=== PATIENT | male | born 1990 | race Caucasian/White ===

== ENCOUNTER 2018-02-09 18:01 | Emergency (ER) | payer OTHER ==
[~2018-02-09] VITALS: Ht 175.3 cm; Wt 86.2 kg
== END 2018-02-09 20:06 | disposition home or self-care (01) ==
LOC: ED 18:01
DX: S63.501A Unspecified sprain of right wrist, initial encounter (principal); W01.0XXA Fall on same level from slipping, tripping and stumbling without subsequent striking against object, initial encounter; Z87.891 Personal history of nicotine dependence
CPT/HCPCS: 73110; 73130; 99283

== ENCOUNTER 2019-01-25 09:45 | Emergency (ER) | payer BC ==
[~2019-01-25] VITALS: Ht 175.3 cm; Wt 86.2 kg
[2019-01-25] MEDS ORDERED: LEVETIRACETAM500 MG PO (10:35)
--- NOTE | 2019-01-26 09:17 | EKG ---
[facility] [address] [facility] [place], [place] [address] Signed Normal sinus rhythm with sinus arrhythmia Normal ECG Confirmed by MABLE JUAREZ MD ([id number]) on 01/26/2019 9:17:11 AM Electronically Signed By: MABLE JUAREZ MD 01/26/19 0917 PATIENT NAME: TRAVIS ESPINOZA Electrocardiogram DATE OF : 88 PHYSICIAN: MABLE JUAREZ MD REPORT #: [id number] REPORT IS CONFIDENTIAL AND NOT TO BE RELEASED WITHOUT AUTHORIZATION
== END 2019-01-25 15:54 | disposition home or self-care (01) ==
LOC: ED 09:45
DX: R07.9 Chest pain, unspecified (principal); F10.10 Alcohol abuse, uncomplicated; Z87.891 Personal history of nicotine dependence
CPT/HCPCS: 71045; 80053; 83735; 84484; 85025; 93005; 93010; 96361; 96365; 96375; 99285-25; J1885; J2405; J3475; J7030

== ENCOUNTER 2019-01-27 21:50 | Emergency (ER) | payer BC ==
[~2019-01-27] VITALS: Ht 175.3 cm; Wt 79.8 kg
[~2019-01-27 21:50] MED LIST: LEVETIRACETAM500 MG PO
--- OUTSIDE RECORDS SUMMARY | 2019-01-27 21:52 | XMS ---
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 Khris has no Care Guidelines for this patient. Antonio VISIT COUNT (12 MO.) [address] [facility] TOTAL 3 NOTE: Visits indicate total known visits. ED/C VISIT TRACKING (12 MO.) 01/27/2019 21:50 [facility] [place] TYPE: Emergency COMPLAINT: - MED CONCERN 01/25/2019 09:46 [place] [place] TYPE: Emergency COMPLAINT: - CHEST PAIN 02/09/2018 18:03 [place] [place] TYPE: Emergency COMPLAINT: - RIGHT WRIST INJURY DIAGNOSES: - Personal history of nicotine dependence - Unspecified sprain of right wrist, initial encounter - Fall on same level from slipping, tripping and stumbling without subsequent striking against object, initial encounter - Pain in right wrist INPATIENT VISIT TRACKING (12 MO.) No inpatient visits to display in this time frame [email or web address]
[2019-01-28] MEDS ORDERED: NALTREXONE HCL50 MG PO (00:19)
== END 2019-01-28 02:21 | disposition home or self-care (01) ==
LOC: ED 21:50
DX: S09.90XA Unspecified injury of head, initial encounter (principal); F17.200 Nicotine dependence, unspecified, uncomplicated; Z79.899 Other long term (current) drug therapy; W22.8XXA Striking against or struck by other objects, initial encounter
CPT/HCPCS: 70450; 99285-25

== ENCOUNTER 2019-10-01 22:27 | Emergency (ER) | payer OTHER ==
[~2019-10-01] VITALS: Ht 175.3 cm; Wt 79.8 kg
--- OUTSIDE RECORDS SUMMARY | ~2019-10-01 | XMS | Encounter Summary ---
Demographics + + + | Address | [address] | | | [place] [address] | + + + | Home Phone | | + + + | Preferred Language | Unknown | + + + | Marital Status | Single | + + + | Quaker Affiliation | Unknown | + + + | Race | Unknown | + + + | Ethnic Group | Unknown | + + + Author + + + | Author | [facility] | | | and [place] | + + + | Organization | [facility] | | | and [place] | + + + | Address | Unknown | + + + | Phone | Unavailable | + + + Support + + +---------+ + | Name | Relationship | Address | Phone | + + +---------+ + | Juju Chancelas | ECON | Unknown | | + + +---------+ + Care Team Providers + +------+ + | Care Dater Assembler Name | Role | Phone | + +------+ + | No, Physician | PCP | Unavailable | + +------+ + Encounter Details +--------+ + + + + | Date | Type | Department | Care Team | Description | +--------+ + + + + | 07/07/ | Hospital | [facility] | Carlos Enrique Moody MD | Alcohol related | | 2020 | Encounter | HOSPITAL RES[facility] | [address] | seizure (HCC); | | | | THERAPY [address] | [place], [place] | Cerebral concussion, | | | | [address] [place], [place] | [id number] | with loss of | | | | [address] | | consciousness of 30 | | | | [phone] | | minutes or less, | | | | | | sequela (HCC) | +--------+ + + + + Social History + + + +--------+ + | Tobacco Use | Types | Packs/Day | Years | Date | | | | | Used | | + + + +--------+ + | Current Every Day | Cigarettes | 0.5 | | Started: 2003 | | Smoker | | | | | + + + +--------+ + + +---+---+---+ | Smokeless Tobacco: | | | | | Current User | | | | + +---+---+---+ + + +---------+ + | Alcohol Use | Drinks/Week | oz/Week | Comments | + + +---------+ + | Not Currently | | | Quit on 04/27/19 in | | | | | rehab | + + +---------+ + + + + | Sex Assigned at | Date Recorded | | | | + + + | Not on file | | + + + + + + + | Job Start Date | Occupation | Industry | + + + + | Not on file | Not on file | Not on file | + + + + + + + + | Travel History | Travel Start | Travel End | + + + + + + | No recent travel history available. | + + documented as of this encounter Medications at Time of Discharge + + + +---------+ + + | Medication | Sig | Dispensed | Refills | Start | End Date | | | | | | Date | | + + + +---------+ + + | levETIRAcetam | Take 500 mg by mouth | | 0 | 01/23/20 | | | (KEPPRA) 500 mg | 2 times daily. | | | 19 | | | tablet | | | | | | + + + +---------+ + + | naltrexone (REVIA) | Take 50 mg by mouth | | 0 | 01/23/20 | | | 50 mg tablet | Daily. | | | 19 | | + + + +---------+ + + documented as of this encounter Progress Notes Nestor Boss RRT - 07/07/2019 8:00 AM PST Setup Ambulatory EEG with video. Explain use of equipment to the patient. Lance will return EEG equipment tomorrow and staff will downl oad study. documented in this encounter Plan of Treatment Not on filedocumented as of this encounter Procedures + +--------+ + + + | Procedure Name | Priori | Date/Time | Associated Diagnosis | Comments | | | ty | | | | + +--------+ + + + | *TERMED* PA EEG | Routin | 07/07/2019 | Alcohol related | Results for this | | MONITORING/VIDEORECO | e | 8:00 AM | seizure (HCC) | procedure are in the | | RD | | PST | Cerebral concussion, | results section. | | | | | with loss of | | | | | | consciousness of 30 | | | | | | minutes or less, | | | | | | sequela (HCC) | | + +--------+ + + + documented in this encounter Results EEG 24 HR AMBULATORY MONITORING (07/07/2019 8:00 AM PST) + + + | Narrative | Performed At | + + + | Johanna Al MD 07/08/2019 12:37 PM Name:Lance Jack | | | Rosa :1990 DATE OF SERVICE: 07/07/2019 | | | 24 HOUR ELECTROENCEPHALOGRAM INTRODUCTION: This a digital | | | ambulatory video EEG recording of a 29 y.o. year-old male with | | | seizures. This study was performed to further ascertain the nature | | | of the patient's spells. This study utilized 20 channels of EEG | | | derived from 21 scalp electrodes placed over the frontal, temporal, | | | parietal, occipital, and central regions. The International 10 | | | | | | 20 system of electrode placement was used. The recording was | | | started at 8:51 AM on 07/07/2019 and ended at 11:24 AM on 07/08/19 | | | for a total record duration of approximately 27.5 hours. More than | | | 80% of the study included recorded video. RESULTS: The study was | | | reviewed using the Tolerx EEG digital system. During the | | | awake portions of the recording, a normal background pattern | | | consisting of 10 Hz was noted. The patient was asleep between | | | 12:37 PM and 3:04 PM, between 10:43 PM and 11:58 PM, and between | | | 12:07 AM and 6:07 AM. ABNORMAL POTENTIALS: No focal slow waves | | | or epileptiform discharges were seen. PUSH BUTTON/VOICE ENTRY | | | EVENTS: There were none IMPRESSION: Normal video ambulatory EEG | | | study. There was no electrographic evidence of a seizure disorder | | | during the 27.5 hour duration of this recording. Thank you for | | | the opportunity to participate in the care of this patient. | | | Johanna Al MD07/08/201912:35 PM Electronically signed | | | | | + + + documented in this encounter Visit Diagnoses + + | Diagnosis | + + | Alcohol related seizure (HCC) Other convulsions | + + | Cerebral concussion, with loss of consciousness of 30 minutes or less, sequela (HCC) | + + documented in this encounter"
--- OUTSIDE RECORDS SUMMARY | ~2019-10-01 | XMS | Encounter Summary ---
Demographics + + + | Address | [address] | | | [place] [address] | + + + | Home Phone | | + + + | Preferred Language | Unknown | + + + | Marital Status | Single | + + + | Voodoo Affiliation | Unknown | + + + | Race | Unknown | + + + | Ethnic Group | Unknown | + + + Author + + + | Author | [facility] | | | and [place] | + + + | Organization | [facility] | | | and [...] Team Providers + +------+ + | Care Geriatric Physician Name | Role | Phone | + +------+ + PCP | Unavailable | + +------+ + Reason for Visit + + + | Reason | Comments | + + + | Lab Results | | + + + Encounter Details +--------+ + + + + | Date | Type | Department | Care Team | Description | +--------+ + + + + | 06/10/ | Telephone | [facility] | Danni Alicia RN | Lab Results | | 2019 | | HOSPITAL NEUROLOGY | | | | | | CLINIC [address] | | | | | | [address] [place], | | | | | | [place] [address] | | | | | | [phone] | | | +--------+ + + + + Social [...] + + documented as of this encounter Plan of Treatment Not on filedocumented as of this encounter Visit Diagnoses Not on filedocumented in this encounter"
--- OUTSIDE RECORDS SUMMARY | ~2019-10-01 | XMS | Encounter Summary ---
Demographics + + + | Address | [address] | | | [place] [address] | + + + | Home Phone | | + + + | Preferred Language | Unknown | + + + | Marital Status | Single | + + + | Moravian Affiliation | Unknown | + + + | Race | Unknown | + + + | Ethnic Group | Unknown | + + + Author + + + | Author | [facility] | | | and [place] | + + + | Organization | [facility] | | | and [place] | + + + | Address | Unknown | + + + | Phone | Unavailable | + + + Support + + +---------+ + | Name | Relationship | Address | Phone | + + +---------+ + | Juju Edward | ECON | Unknown | | + + +---------+ + Care Team Providers + +------+ + | Care Soft Work Cigar Machine Operator Name | Role | Phone | + +------+ + | No, Physician | PCP | Unavailable | + +------+ + Reason for Visit + + + | Reason | Comments | + + + | Results, Imaging | | + + + Encounter Details +--------+ + + + + | Date | Type | Department | Care Team | Description | +--------+ + + + + | 07/01/ | Telephone | [facility] | Carlos Enrique Moody MD | Results, Imaging | | 2020 | | HOSPITAL NEUROLOGY | [address] | | | | | CLINIC [address] | [place], [place] | | | | | [address], | [address] | | | | | [place] [address] | | | | | | [phone] | | | +--------+ + + + [...]
--- OUTSIDE RECORDS SUMMARY | ~2019-10-01 | XMS | Encounter Summary ---
Demographics + + + | Address | [address] | | | [place] [address] | + + + | Home Phone | | + + + | Preferred Language | Unknown | + + + | Marital Status | Single | + + + | Spiritism Affiliation | Unknown | + + + | Race | Unknown | + + + | Ethnic Group | Unknown | + + + Author + + + | Author | [facility] | | | and [place] | + + + | Organization | [facility] | | | and [...] Team Providers + +------+ + | Care Instructor Private Name | Role | Phone | + [...] [address] | | | | | [place] [address] | | | | | | [phone] | | | +--------+ + + + [...]
--- OUTSIDE RECORDS SUMMARY | ~2019-10-01 | XMS | Encounter Summary ---
Demographics + + + | Address | [address] | | | [place] [address] | + + + | Home Phone | | + + + | Preferred Language | Unknown | + + + | Marital Status | Single | + + + | Quaker Affiliation | Unknown | + + + | Race | Unknown | + + + | Ethnic Group | Unknown | + + + Author + + + | Author | [facility] | | | and [place] | + + + | Organization | [facility] | | | [...] Team Providers + +------+ + | Care Automotive Technician Instructor Name | Role | Phone | + +------+ + | No, Physician | PCP | Unavailable | + +------+ + Reason for Referral Diagnostic/Screening (Routine) +--------+--------+ + + + + | Status | Reason | Specialty | Diagnoses / | Referred By | Referred To | | | | | Procedures | Contact | Contact | +--------+--------+ + + + + | Closed | | Radiology | Diagnoses | Mikaela, | Cc Wgr Mri | | | | | Alcohol | Johanna Steinberg, | [address] | | | | | related | MD [address] | | | | | seizure | [address] | [place] | | | | | (HCC) | [address], [address] [place] | [address] | | | | | Cerebral | [place], | Phone: | | | | | concussion, | [place] [address] | [phone] | | | | | with loss of | Phone: | Fax: | | | | | | [phone] | [phone] | | | | | consciousnes | Fax: | | | | | | s of 30 | [phone] | | | | | | minutes or | | | | | | | less, | | | | | | | sequela | | | | | | | (HCC) | | | | | | | Procedures | | | | | | | MRI Brain w | | | | | | | wo Contrast | | | +--------+--------+ + + + + Reason for Visit Diagnostic/Screening (Routine) +--------+--------+ + + + + | Status | Reason | Specialty | Diagnoses / | Referred By | Referred To | | | | | Procedures | Contact | Contact | +--------+--------+ + + + + | Closed | | Radiology | Diagnoses | Mikaela, | Cc Wgr Mri | | | | | Alcohol | Johanna Steinberg, | [address] | | | | | related | MD [address] | [address] | | | | | seizure | [address] | [place], [place] | | | | | ([facility]) | [address] | [address] | | | | | Cerebral | [place], | Phone: | | | | | concussion, | [place] [address] | [phone] | | | | | with loss of | Phone: | Fax: | | | | | | [phone] | [phone] | | | | | consciousnes | Fax: | | | | | | s of 30 | [phone] | | | | | | minutes or | | | | | | | less, | | | | | | | sequela | | | | | | | ([facility]) | | | | | | | Procedures | | | | | | | MRI Brain w | | | | | | | wo Contrast | | | +--------+--------+ + + + + Encounter Details +--------+ + + + + | Date | Type | Department | Care Team | Description | +--------+ + + + + | 06/30/ | Hospital | [facility] | Johanna Al | Alcohol related | | 2020 | Encounter | Hospital MRI [address] | [address] | seizure (HCC); | | | | [address] | [address] [place] | Cerebral concussion, | | | | [place], [place] | [place] [address] | with loss of | | | | [address] | [phone] | consciousness of 30 | | | | [phone] | | minutes or less, | | [...] | + +--------+ + + + | MRI BRAIN W WO | Routin | 06/30/2019 | Alcohol related | Results for this | | CONTRAST | e | 10:03 AM | seizure (HCC) | procedure are in the | | | | PST | Cerebral concussion, | results section. | | | | | with loss of | | | | | | consciousness of 30 | | | | | | minutes or less, | | | | | | sequela (HCC) | | + +--------+ + + + documented in this encounter Results MRI Brain w wo Contrast (06/30/2019 10:03 AM PST) + + | Specimen | + + | | + + + + + | Impressions | Performed At | + + + | 1. No acute finding. 2. Nonspecific small enhancing right | [facility] | | paracentral francisco javier lesion. Differential includes cavernous | | | malformation. Recommend approximate 3-6 month follow-up MR to | | | re-evaluate the lesion. 3. Mild prominence of the lateral ventricles | | | which may be within normal limits. Dictated by: Thomas Klein | | | | | + + + + + + | Narrative | Performed At | + + + | EXAMINATION: MRI BRAIN W WO CONTRAST HISTORY: Seizure, | [facility] | | nontraumatic (Age 18-40y) COMPARISON STUDY: None TECHNIQUE: | | | Multiplanar multi sequence MRI of the brain is performed without and | | | with contrast. Gadovist was injected intravenously without post | | | contrast reaction. FINDINGS: Diffusion-weighted images show no | | | evidence of restricted diffusion. The rowland-white matter interface is | | | intact. No acute intracranial hemorrhage, mass lesion, or midline | | | shift. No abnormal enhancement. Basilar cisterns are patent. | | | Ventricles are symmetric with mild prominence of the lateral | | | ventricles. Sulci are age appropriate. Major flow voids are present. | | | No focal white matter lesion. Paranasal sinuses and mastoid air | | | cells are clear . No focal pituitary abnormality is identified. | | | Corpus callosum is unremarkable. Brainstem is demonstrates a subtle | | | focus of hyperenhancement at the dorsal right paramedian francisco javier. On | | | gradient images subtle blooming is present associated with this | | | finding. Dimension approximately 2 mm seen on series 17 image 22 of | | | the postcontrast axial T1 sequence. No enhancing masses are | | | identified at the cerebellopontine angle or within the internal | | | auditory canals bilaterally. Visualized seventh and eighth nerves are | | | unremarkable. The cochlea and semicircular canals are unremarkable. | | + + + + + | Procedure Note | + + | Dilan, Rad Results In 06/30/2019 6:26 PM PST EXAMINATION:MRI BRAIN W WO | | CONTRASTHISTORY:Seizure, nontraumatic (Age 18-40y)COMPARISON | | STUDY:NoneTECHNIQUE:Multiplanar multi sequence MRI of the brain is performed without and | | with contrast. Gadovist was injected intravenously without post contrast | | reaction.FINDINGS:Diffusion-weighted images show no evidence of restricted diffusion.The | | rowland-white matter interface is intact.No acute intracranial hemorrhage, mass lesion, or | | midline shift.No abnormal enhancement.Basilar cisterns are patent.Ventricles are | | symmetric with mild prominence of the lateral ventricles.Sulci are age appropriate.Major | | flow voids are present.No focal white matter lesion.Paranasal sinuses and mastoid air | | cells are clear .No focal pituitary abnormality is identified.Corpus callosum is | | unremarkable.Brainstem is demonstrates a subtle focus of hyperenhancement at the dorsal | | right paramedian francisco javier. On gradient images subtle blooming is present associated with | | this finding. Dimension approximately 2 mm seen on series 17 image 22 of the | | postcontrast axial T1 sequence.No enhancing masses are identified at the | | cerebellopontine angle or within the internal auditory canals bilaterally. Visualized | | seventh and eighth nerves are unremarkable. The cochlea and semicircular canals are | | unremarkable.IMPRESSION: 1. No acute finding.2. Nonspecific small enhancing right | | paracentral francisco javier lesion. Differential includes cavernous malformation. Recommend | | approximate 3-6 month follow-up MR to re-evaluate the lesion.3. Mild prominence of the | | lateral ventricles which may be within normal limits.Dictated by: Thomas | | Ernie | |No focal white matter lesion. | |Paranasal sinuses and mastoid air cells are clear . | |No focal pituitary abnormality is identified. | |Corpus callosum is unremarkable. | |Brainstem is demonstrates a subtle focus of hyperenhancement at the dorsal right paramedian francisco javier. On gradient images subtle blooming is present associated with this finding. Dimensi on approximately 2 mm seen on series 17 image 22 of the postcontrast | |axial T1 sequence. | | | |No enhancing masses are identified at the cerebellopontine angle or within the internal aud itory canals bilaterally. Visualized seventh and eighth nerves are unremarkable. The cochlea and semicircular canals are unremarkable. | | | |IMPRESSION: | |1. No acute finding. | |2. Nonspecific small enhancing right paracentral francisco javier lesion. Differential includes cavern ous malformation. Recommend approximate 3-6 month follow-up MR to re-evaluate the lesion. | |3. Mild prominence of the lateral ventricles which may be within normal limits. | | | |Dictated by: Thomas Klein | | | | | + + + +---------+ + + | Performing | Address | City/State/Zipcode | Phone Number | | Organization | | | | + +---------+ + + | [facility] | | | | + +---------+ + + documented in this encounter Visit Diagnoses + + | Diagnosis | + + | Alcohol related seizure (HCC) Other convulsions | + + | Cerebral concussion, with loss of consciousness of 30 minutes or less, sequela (HCC) | + + documented in this encounter Administered Medications + +--------+ +-------+------+------+ | Medication Order | MAR | Action | Dose | Rate | Site | | | Action | Date | | | | + +--------+ +-------+------+------+ | gadobutrol (GADAVIST) injection | Given | 06/30/19 | 9 mLs | | | | 9 mL 9 mL, Intravenous, ONCE | | 20 10:04 | | | | | PRN, Other, Starting 06/30/19 | | AM PST | | | | | at 1004, For 1 dose, MRI | | | | | | + +--------+ +-------+------+------+ +---+---+ | | | +---+---+ documented in this encounter"
--- OUTSIDE RECORDS SUMMARY | ~2019-10-01 | XMS | Encounter Summary ---
Demographics + + + | Address | [address] | | | [place] [address] | + + + | Home Phone | | + + + | Preferred Language | Unknown | + + + | Marital Status | Single | + + + | Synagogue Affiliation | Unknown | + + + | Race | Unknown | + + + | Ethnic Group | Unknown | + + + Author + + + | Author | [facility] | | | and [place] | + + + | Organization | [facility] | | | and [...] Team Providers + +------+ + | Care Social Media Campaign Manager Name | Role | Phone | + +------+ + PCP | Unavailable | + +------+ + Reason for Visit +--------+ + | Reason | Comments | +--------+ + | Other | | +--------+ + Encounter Details +--------+ + + + + | Date | Type | Department | Care Team | Description | +--------+ + + + + | 06/04/ | Telephone | [facility] | Zachary Aline | Other | | 2019 | | HOSPITAL NEUROLOGY | MD [address] | | | | | CLINIC [address] | [address] [place] | | | | | [address] [place], | [place] [address] | | | | | [place] [address] | [phone] | | | | | [phone] | | | +--------+ + + + [...]
--- OUTSIDE RECORDS SUMMARY | ~2019-10-01 | XMS | Encounter Summary ---
Demographics + + + | Address | [address] | | | [place] [address] | + + + | Home Phone | | + + + | Preferred Language | Unknown | + + + | Marital Status | Single | + + + | Congregational Affiliation | Unknown | + + + | Race | Unknown | + + + | Ethnic Group | Unknown | + + + Author + + + | Author | [facility] | | | and [place] | + + + | Organization | [facility] | | | [...] Team Providers + +------+ + | Care Direct Support Professional Home Health Name | Role | Phone | + [...] [place] | | | | | ([facility]) | [place] | [address] | | | | | Cerebral | [place], | Phone: | | | | | concussion, | [place] [address] | [phone] | | | | | with loss of | Phone: | Fax: | | | | | | [phone] | [phone] | | | | | consciousnes | Fax: | | | | | | s of 30 | [phone] | | | | | | minutes [...] + + + + Reason for Visit + + + | Reason | Comments | + + + | Establish Care | Seizures | + + + Evaluate & Treat (Routine) +--------+--------+ + + + + | Status | Reason | Specialty | Diagnoses / | Referred By | Referred To | | | | | Procedures | Contact | Contact | +--------+--------+ + + + + | Closed | | Neurology | Diagnoses | Amari, | Mikaela, | | | | | Unspecified | Radha Kitchen, | Johanna Steinberg, | | | | | convulsions | PA-C [address] | MD [address] | | | | | (HCC) | [address] | [address], | | | | | | [place], [place] | [place] | | | | | | [address] | [place], [place] | | | | | | Phone: | [phone] Phone: | | | | | | [phone] | [phone] | | | | | | Fax: | Fax: | | | | | | [phone] | [phone] | +--------+--------+ + + + + Encounter Details +--------+---------+ + + + | Date | Type | Department | Care Team | Description | +--------+---------+ + + + | 06/04/ | Office | [facility] | Johanna Al | Alcohol related | | 2020 | Visit | HOSPITAL NEUROLOGY | MD [address] | seizure ([facility]); | | | | CLINIC [address] | [place] | Cerebral concussion, | | | | DR JESUS MAK [place], | [place] [address] | with loss of | | | | [place] [address] | [phone] | consciousness of 30 | | | | [phone] | | minutes or less, | | | | | | sequela (HCC) | +--------+---------+ + + + Social History + + [...] + + documented as of this encounter Last Filed Vital Signs + + + + + | Vital Sign | Reading | Time Taken | Comments | + + + + + | Blood Pressure | 129/84 | 06/04/2019 4:30 PM | | | | | PST | | + + + + + | Pulse | 80 | 06/04/2019 4:30 PM | | | | | PST | | + + + + + | Temperature | - | - | | + + + + + | Respiratory Rate | 18 | 06/04/2019 4:30 PM | | | | | PST | | + + + + + | Oxygen Saturation | 96% | 06/04/2019 4:30 PM | | | | | PST | | + + + + + | Inhaled Oxygen | - | - | | | Concentration | | | | + + + + + | Weight | 89.4 kg (197 lb 1.6 | 06/04/2019 4:30 PM | | | | oz) | PST | | + + + + + | Height | 177.8 cm (5' 10") | 06/04/2019 4:30 PM | | | | | PST | | + + + + + | Body Mass Index | 28.28 | 06/04/2019 4:30 PM | | | | | PST | | + + + + + documented in this encounter Patient Instructions Patient Instructions Johanna Al MD - 06/04/2019 4:30 PM PSTYou have the followin g tests/procedures ordered. At [facility] Radiology : Brain MRI with and without contrast EEG 24 hour Blood work at [facility]: Keppra level *Any questions, please call Dr. Al's office at Patient advised of their right to have diagnostic testing, health care treatment, and/or se rvices at a facility other than [facility], [facility]. Recurrent Seizure (Adult) You have had another seizure today. A common cause of seizures that keep happening (recurre nt seizures) is missing doses of seizure medicine. But sometimes seizures are hard to contro l even when you take the medicine correctly. If this is the case for you, your healthcare pr ovider may need to increase your dosage. Or you may need to add or change to another medicin e. Home care Follow these tips when caring for yourself at home. For this seizure: Seizures aren t predictable. So avoid doing anything that might cause danger to you or other people if you have another seizure. Until the seizures are under good control, take t hese precautions: ? Don t drive, ride a motorcycle, or ride a bike. ? Don t operate dangerous equipment such as power tools ? Take showers instead of baths. ? Don t swim or climb ladders, trees, or roofs. Tell your close friends and relatives about your seizure. Teach them what to do for you if it happens again. If medicine was prescribed to prevent seizures, take it exactly as directed. It does not work when taken "as needed." Missing doses will increase the risk of having another seizure . If you miss a dose, take the missed dose as soon as you remember. If it is almost time f or your next dose, skip the missed dose. Restart the medicine at your next scheduled time. D on t take extra medicine to make up the missed dose. Wear a "Medic-Alert" bracelet to let emergency personnel know about your condition. Follow a regular sleep schedule such that you get at least 6 to 8 hours of restful sleep every night. This is especially important when you are sick with a cold or flu and/or anoth er type of infection. For future seizures, if you are alone: If you feel a seizure coming on, lie down on a bed or on the floor with something soft unde r your head. Lie on your left side, not on your back. This will keep you from falling. It wi ll also let fluid drain out of your mouth and prevent choking. Be sure you are clear of any objects that might injure you during the seizure. Call for help if there is time. For future seizures, if someone is with you: The person should help you get into a safe position and call for help. The person shouldn t try to force anything in your mouth once the seizure begins. This could harm your teeth o r jaw. Follow-up care Follow up with your healthcare provider. Keep a seizure calendar to record how often you taylor ve a seizure. If you are being started on anti-seizure medicine, make sure that you use monica tional control. Seizure medicine can affect how well control pills work, and you could become . Avoid alcohol until your doctor tells you it s OK. Note: For the safety of yourself and others on the road, certain states require that the tr eating doctor tell the Public Health Department about any adult who is treated for a seizure and is at risk of more seizures. In this case, the Department of Motor Vehicles will be myrna d. A restriction will be put on your cdl b driver s license until a doctor gives you medical ligia arance to drive again. Contact your treating doctor to find out if your state requires the r eporting of patients with a seizures condition. When to seek medical advice Call your healthcare provider right awayif any of these occur: Seizures happen more often or last longer than usual A seizure lasts over 5 minutes You don t wake up between seizures Confusion that lasts more than 30 minutes after a seizure Injury during a seizure Fever over 100.4F (38.0C), or as advised Unusual irritability, drowsiness, or confusion Stiff or painful neck Headache that gets worse Date Last Reviewed: 12/12/201519994647-5019 [employer]. [address] [place] [address]. All righ ts reserved. This information is not intended as a substitute for professional medical care. Always follow your healthcare professional's instructions. documented in this encounter Progress Notes Gerson Garcia - 06/04/2019 4:30 PM PSTFaxed chart notes from ext consult to refe rring provider Johanna Sepulveda MD - 06/04/2019 4:30 PM PST . Patient: Lance Lee Medical Record: [id number] Date of Services: 06/04/2019 Referring Doctor: No primary care provider on file. Chief Complaint Patient presents with Establish Care Seizures HISTORY OF PRESENT ILLNESS: The patient is a 29-year-old male who is referred to me because of a known history of seizu res. His history is significant for alcohol abuse for the past 9 years. He underwent detox rece ntly and entered inpatient rehab on May 13. His first seizure occurred fibers ago while he was fishing in [place]. It was generali zed in nature. He does not remember what happened. He thinks he was brought to a hospital. I do not have records of that admission. 3 years later, he had a seizure at work. At that time, he was in [place] and was brought t o [facility]. I was able to review the records. Head CT done was negative. He had an E EG but I could not find the results. He told me that it revealed a cardiac arrhythmia altho ugh the notes from his PCP status that it was negative. He had a head CT on 01/28/2019. Thi s was negative as well. At that time, he was placed on Keppra. He stopped drinking and stopped the medication as w ell after a month. Unfortunately, he relapsed and started drinking again. He has had several seizures in the last few months. His last generalized seizure was on . He had a couple of confusional episodes on 05/19/2019. He has been sober for 30 da ys. 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 He also has a history of such as abuse, particularly opiates and psychedelic's and has been clean for 6 months. He has a cousin with seizures. He does not drive at the moment as he reported himself to the V and does not have a licen se. REVIEW OF SYSTEMS: General: Positive for weight changes HEENT: Positive for vision changes and tinnitus Cardiovascular: Positive for palpitations Respiratory: Positive for shortness of breath Gastrointestinal: Positive for jaundice Musculoskeletal: No joint pains Skin: No rash Hematologic: No bruising Neurologic: Positive for memory loss Psychiatric: No depression Genitourinary: Positive for nocturia History reviewed. No pertinent past medical history. Past Surgical History: Procedure Laterality Date facial reconstruction surgery KNEE SURGERY left foot surgery Current Outpatient Medications Medication Sig Dispense Refill levETIRAcetam (KEPPRA) 500 mg tablet Take 500 mg by mouth 2 times daily. naltrexone (REVIA) 50 mg tablet Take 50 mg by mouth Daily. No current facility-administered medications for this visit. No Known Allergies Social History Socioeconomic History Marital status: Single Spouse name: Not on file Number of children: Not on file Years of education: Not on file Highest education level: Not on file Occupational History Not on file Social Needs Financial resource strain: Not on file Food insecurity: Worry: Not on file Inability: Not on file Transportation needs: Medical: Not on file Non-medical: Not on file Tobacco Use Smoking status: Current Every Day Smoker Packs/day: 0.50 Types: Cigarettes Start date: 2003 Smokeless tobacco: Current User Substance and Sexual Activity Alcohol use: Not Currently Comment: Quit on 04/27/19 in rehab Drug use: Not Currently Comment: Drug free X 6 months Sexual activity: Not on file Lifestyle Physical activity: Days per week: Not on file Minutes per session: Not on file Stress: Not on file Relationships Social connections: Talks on phone: Not on file Gets together: Not on file Attends orthodoxy service: Not on file Active member of club or organization: Not on file Attends meetings of clubs or organizations: Not on file Relationship status: Not on file Intimate partner violence: Fear of current or ex partner: Not on file Emotionally abused: Not on file Physically abused: Not on file Forced sexual activity: Not on file Other Topics Concern Not on file Social History Narrative Not on file History reviewed. No pertinent family history. PHYSICAL EXAMINATION: BP 129/84 | Pulse 80 | Resp 18 | Ht 1.778 m (5' 10") | Wt 89.4 kg (197 lb 1.6 oz) | Sp O2 96% | BMI 28.28 kg/m General appearance: Well kept, well nourished, in no acute distress Neck is supple. Lungs are clear. Heart sounds are within normal limits. Abdomen is soft and non-tender, There is no extremity cyanosis or edema. NEUROLOGIC EXAMINATION: MENTAL STATUS: The patient is awake, alert, and oriented to time, place, and person. Spee is fluent. Memory, attention, comprehension, and general fund of knowledge are intact. CRANIAL NERVES: Funduscopy revealed distinct disc margins. There are no exudates or hemor rhages noted. Pupils are 3-4 mm, equal and reactive to light and accommodation. Extraocular muscle movements are intact. There are no visual field cuts. There is no nystagmus. There is no facial asymmetry. Facial sensation is intact. Palate elevates symmetrically. Streng th in the trapezius and sternocleidomastoid muscles is normal. Tongue is midline on protrusi on. MOTOR EXAMINATION: Strength is 5/5 throughout. Tone is normal. SENSORY EXAMINATION: Intact to light touch and pinprick. DEEP TENDON REFLEXES: 2+ and symmetric. PLANTAR RESPONSES: Downgoing bilaterally GAIT: Gait and station are normal. CEREBELLAR EXAMINATION: There is no dysmetria on aklrmc-un-juss test. IMPRESSION: 1. Alcohol related seizure (HCC) - MRI Brain w wo Contrast; Future - Levetiracetam Level; Future - EEG 24 HR AMBULATORY MONITORING; Future 2. Cerebral concussion, with loss of consciousness of 30 minutes or less, sequela (HCC) - MRI Brain w wo Contrast; Future - EEG 24 HR AMBULATORY MONITORING; Future PLAN AND RECOMMENDATIONS: I reviewed the patient's medical records prior to his visit and went over them with him. He has had only head CTs in the past and I would like him to have a brain MRI with and with out contrast to have a better neuroimaging study. This is to rule out any lesion that may p redispose him to having seizures. I'm also ordering a 24 EEG. I believe that his seizures were all secondary to alcohol withdrawal and they will likely r emit us long as he remains sober. In the meantime however, he will remain on Keppra. I ordered a level. As mentioned above, he does not have a license and he understands that he is unable to driv e until he is seizure free for 90 days. His last seizure was 05/19/2019. We will continue to follow him for his him back in 2 months to see Anita WALKER. More than 50% of this 45 minute visit was spent on jxhx-bu-pdzh with the patient, artin g him on the relationship between alcohol and seizures and reviewing his plan of care. Thank you for the opportunity to participate in the care of this patient. Johanna Al MD 06/04/2019 5:02 PM Electronically signed This note was transcribed using voice recognition software. There may be speech recognitio n errors which escaped detection during review. documented in thi s encounter Plan of Treatment Not on filedocumented as of this encounter Results EEG 24 HR AMBULATORY [...] was | | | reviewed using the Formarum EEG digital system. During the | | [...] of this patient. | | | Johanna Al, 07/08/201912:35 PM Electronically signed | | | | | + + + MRI Brain w wo Contrast (06/30/2019 10:03 [...] + + | Dilan, Rad Results In - 06/30/2019 6:26 PM PST EXAMINATION:MRI BRAIN W [...] | | | + +---------+ + + Levetiracetam Level (06/04/2019 5:15 PM PST) + + + + + + | Component | Value | Ref Range | Performed | Pathologist | | | | | At | Signature | + + + + + + | LEVETIRACET | 4.3 (L)Comment: Toxic | 12.0 - 46.0 | REFERENCE | | | AM | level is not well | mcg/mL | [facility] | | | | established. | | [facility] | | | | Interpretation should | | - [place] | | | | include a clinical | | [place] | | | | evaluation. For | | | | | | additional information, | | | | | | please refer to | | | | | | [email or web address] CenterDi | | | | | | [email or web address] [email or web address]/QZB664 | | | | | | (This link is being | | | | | | provided for | | | | | | informational/educationa | | | | | | l purposes only.) This | | | | | | test was developed and | | | | | | its analytical | | | | | | performance | | | | | | characteristics have | | | | | | been determined by [facility] | | | | | | [facility] | | | | | | [place]s | | | | | | [place]. It has not | | | | | | been cleared or approved | | | | | | by the USFood and Drug | | | | | | Administration. This | | | | | | assay has been validated | | | | | | pursuant to the CLIA | | | | | | regulations and is used | | | | | | for clinical purposes. | | | | | | @ Test Performed By: | | | | | | [facility] | | | | | | Sil Marcano | | | | | | Alecia Langford M.D., | | | | | | Ph.D., Laboratory | | | | | | Director [id number] | | | | | | [facility] | | | | | | [place] [address] | | | | | | CLIA #[id number] | | | | + + + + + + + + | Specimen | + + | Blood | + + + + + + + | Performing | Address | City/State/Zipcode | Phone Number | | Organization | | | | + + + + + | REFERENCE LAB | [id number] [facility] | [place], [place] | | | [facility] - | | [address] | | | [place] | | | | + + + + + documented in this encounter Visit Diagnoses + + | Diagnosis | + + | Alcohol related seizure (HCC) Other convulsions | + + | Cerebral concussion, with loss of consciousness of 30 minutes or less, sequela (HCC) | + + documented in this encounter
--- OUTSIDE RECORDS SUMMARY | ~2019-10-01 | XMS | Encounter Summary ---
Demographics + + + | Address | [address] | | | [place] [address] | + + + | Home Phone | | + + + | Preferred Language | Unknown | + + + | Marital Status | Single | + + + | Amish Affiliation | Unknown | + + + | Race | Unknown | + + + | Ethnic Group | Unknown | + + + Author + + + | Author | [facility] | | | and [place] | + + + | Organization | [facility] | | [...] Team Providers + +------+ + | Care Evaporator Supervisor Name | Role | Phone | + [...] | DR [address]ES[address], | [place] [address] | | | | | [place] [address] | [phone] | | | | | [phone] | | | +--------+ + + + [...]
--- OUTSIDE RECORDS SUMMARY | ~2019-10-01 | XMS | Encounter Summary ---
Demographics + + + | Address | [address] | | | [place] [address] | + + + | Home Phone | | + + + | Preferred Language | Unknown | + + + | Marital Status | Single | + + + | Lutheran Affiliation | Unknown | + + + | Race | Unknown | + + + | Ethnic Group | Unknown | + + + Author + + + | Author | [facility] | | | and [place] | + + + | Organization | [facility] | | | and [...] Team Providers + +------+ + | Care Human Resources Talent Manager Name | Role | Phone | + +------+ + | No, Physician | PCP | Unavailable | + +------+ + Reason for Visit +---------+ + | Reason | Comments | +---------+ + | Results | EEG | +---------+ + Encounter Details +--------+ + + + + | Date | Type | Department | Care Team | Description | +--------+ + + + + | 07/08/ | Telephone | [facility] | Danni Alicia RN | Results (EEG) | | 2019 | | [facility] | | | | | | CLINIC [address] | | | | | | DR [address] [place], | | | | | | [place] [address] | | | | | | [phone] | | | +--------+ + + + [...]
--- OUTSIDE RECORDS SUMMARY | ~2019-10-01 | XMS | Encounter Summary ---
Demographics + + + | Address | [address] | | | [place] [address] | + + + | Home Phone | | + + + | Preferred Language | Unknown | + + + | Marital Status | Single | + + + | Mormonism Affiliation | Unknown | + + + | Race | Unknown | + + + | Ethnic Group | Unknown | + + + Author + + + | Author | [facility] | | | and [place] | + + + | Organization | [facility] | | | [...] Team Providers + +------+ + | Care Program Coordinator Name | Role | Phone | + [...] [place] | | | | | ([facility]) | [place] | [address] | | | | | Cerebral | [place], | Phone: | | | | | concussion, | [place] [address] | [phone] | | | | | with loss of | Phone: | Fax: | | | | | | [phone] | [phone] | | | | | consciousnes | Fax: | | | | | | s of 30 | [phone] | | | | | | minutes [...] | (HCC) | [address] | [address], | | | | | | [place], [place] | [place] | | | | | | [address] | [place], [place] | | | | | | Phone: | [phone] Phone: | | | | | | [phone] | [phone] | | | | | | Fax: | Fax: | | | | | | [phone] | [phone] | +--------+--------+ + + + + Encounter Details +--------+---------+ + + + | Date | Type | Department | Care Team | Description | +--------+---------+ + + + | 06/04/ | Office | [facility] | Johanna Al | Alcohol related | | 2020 | Visit | HOSPITAL [facility]Y | MD [address] | seizure ([facility]); | | | | CLINIC [address] | [place] | Cerebral concussion, | | | | DR [address]ESUS MAK [place], | [place] [address] | with loss of | | | | [place] [address] | [phone] | consciousness of 30 | | | | [phone] | | minutes or less, | | [...] contrast EEG 24 hour Blood work at [facility]: Keppra level *Any questions, please call Dr. Al's office at Patient advised of their right to have diagnostic testing, health care treatment, and/or se rvices at a facility other than [facility], [facility]. 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 [address] [place] [address]. All righ ts reserved. This information is not intended as a substitute for professional medical care. Always follow your healthcare professional's instructions. documented in this encounter Progress Notes Gerson Garcia - 06/04/2019 4:30 PM PSTFaxed chart notes from ext consult to refe rring provider Johanna Sepulveda MD - 06/04/2019 4:30 PM PST . Patient: Lance Lee Medical Record: [id number] Date of Services: 06/04/2019 Referring Doctor: No [...] fibers ago while he was fishing in [place]. It was generali zed in nature. He does not remember what happened. He thinks he was brought to a hospital. I do not have records of that admission. 3 years later, he had a seizure at work. At that time, he was in [place] and was brought t o [facility]. I was able to review [...] file Gets together: Not on file Attends nondenominational service: Not on file Active member of [...] CEREBELLAR EXAMINATION: There is no dysmetria on fynixe-zk-hxyl test. IMPRESSION: 1. Alcohol related seizure (HCC) [...] this 45 minute visit was spent on wbcj-kk-nmun with the patient, artin g him on [...] was | | | reviewed using the [employer] EEG digital system. During the | | [...] to | | | | | | [email or web address] | | | | | | 9sky.[email or web address] | | | | | | (This [...] | | | | | | Director [id number] | | | | | | [facility] | | | | | | [place] [address] | | | | | | CLIA #[id number] | | | | + + + + + + + + | Specimen | + + | Blood | + + + + + + + | Performing | Address | City/State/Zipcode | Phone Number | | Organization | | | | + + + + + | REFERENCE LAB | [id number] [facility] | [place], [place] | | | [facility] - | | [address] | | | [place] | | [...]
--- OUTSIDE RECORDS SUMMARY | ~2019-10-01 | XMS | Clinical Summary ---
Demographics + + + | Address | [address] | | | [place] [address] | + + + | Home Phone | | + + + | Preferred Language | Unknown | + + + | Marital Status | Single | + + + | Gnosticism Affiliation | Unknown | + + + | Race | Unknown | + + + | Ethnic Group | Unknown | + + + Author + + + | Author | [facility] | | | and [place] | + + + | Organization | [facility] | | [...] Team Providers + +------+ + | Care Oil Heaterman Name | Role | Phone | + +------+ + | No, Physician | PCP | Unavailable | + +------+ + Allergies No Known Allergies Medications + + + +---------+------+------+-------+ | Medication | Sig | Dispensed | Refills | Star | End | Statu | | | | | | t | Date | s | | | | | | Date | | | + + + +---------+------+------+-------+ | levETIRAcetam | Take 500 mg by mouth | | 0 | 09/1 | | Activ | | (KEPPRA) 500 mg | 2 times daily. | | | 220 | | e | | tablet | | | | 19 | | | + + + +---------+------+------+-------+ | naltrexone (REVIA) | Take 50 mg by mouth | | 0 | 01/11 | | Activ | | 50 mg tablet | Daily. 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 | + + + | Cerebral concussion | 06/04/2019 | + + + Encounters +--------+ + + + + | Date | Type | Specialty | Care Team | Description | +--------+ + + + + | 07/08/ | Telephone | Neurology | Danni Alicia RN | Results (EEG) | | 2019 | | | | | +--------+ + + + + | 07/07/ | Hospital | Respiratory Therapy | Carlos Enrique Moody MD | Alcohol related | | 2019 | Encounter | | | seizure (HCC); | | | | | | Cerebral concussion, | | | | | | with loss of | | | | | | consciousness of 30 | | | | | | minutes or less, | | | | | | sequela (HCC) | +--------+ + + + + | 07/03/ | Telephone | Neurology | Johanna Al | Results, Imaging | | 2019 | | | MD Idris | | +--------+ + + + + from Last 3 Months Family History + +------+--------+ + | Relation | Name | Status | Comments | + +------+--------+ + | Father | | Alive | | + +------+--------+ + | Mother | | Alive | | + +------+--------+ + Social History + + + +--------+ + | Tobacco Use | Types | Packs/Day | Years | Date | | | | | Used | | + + + +--------+ + | Current Every Day | Cigarettes | 0.5 | | Started: 2004 | | Smoker | | | | [...] recent travel history available. | + + Last Filed Vital Signs + + + [...] | | + + + + + Plan of Treatment + + + + + | Health Maintenance | Due Date | Last Done | Comments | + + + + + | Vaccine: | | | | | Pneumococcal 19-64 | 5 | | | | (1 of 1 - PPSV23) | | | | + + + + + | Vaccine: | | 05/14/2008, 07/10/2000, | | | Dtap/Tdap/Td (6 - | 9 | 01/02/1995, Additional history | | | Td) | | exists | | + + + + + | Vaccine: Influenza | | 03/03/2014 | | | (Season Ended) | 0 | | | + + + + + Procedures + +--------+ + + + | Procedure Name | Priori | Date/Time | Associated Diagnosis | Comments | | | ty | | | | + +--------+ + + + | *TERMED* [place] EEG | Routin | 07/07/2019 | Alcohol [...] | | + +--------+ + + + from Last 3 Months Results EEG 24 HR AMBULATORY MONITORING (07/07/2019 [...] was | | | reviewed using the [employer] EEG digital system. During the | | [...] | | | | + + + from Last 3 Months Insurance + +--------+ +--------+ +---------+--------+ | Payer | Benefi | Subscriber | Effect | Phone | Address | Type | | | t Plan | ID | rupert | | | | | | / | | Dates | | | | | | Group | | | | | | + +--------+ +--------+ +---------+--------+ | [place] | MEDICA | [id number] | | [phone] | | Med[place] | | | [place] | | 020-Pr | 2 | | id | | | PLUS | | esent | | | | + +--------+ +--------+ +---------+--------+ + +--------+ +--------+ + + | Guarantor Name | Accoun | Relation to | Date | Phone | Billing Address | | | t Type | Patient | of | | | | | | | | | | + +--------+ +--------+ + + | Lance Lee | Person | Self [birth year] | [address] | | | al/Fam | | 1990 | [phone] | [place] | | | [place] | | | [address] (Home) | [address] | + +--------+ +--------+ + + Advance Directives + + + + + | Type | Date Recorded | Patient | Explanation | | | | Property Field Adjuster | | + + + + + | Power of | | | | | Fishing Hand | | | | + + + + + | Advance | 07/07/2019 9:25 | | | | Directive | AM | | | + + + + +
--- OUTSIDE RECORDS SUMMARY | ~2019-10-01 | XMS | Encounter Summary ---
Demographics + + + | Address | [address] | | | [place] [address] | + + + | Home Phone | | + + + | Preferred Language | Unknown | + + + | Marital Status | Single | + + + | Sikh Affiliation | Unknown | + + + | Race | Unknown | + + + | Ethnic Group | Unknown | + + + Author + + + | Author | [facility] | | | and [place] | + + + | Organization | [facility] | | | [...] Team Providers + +------+ + | Care Workers Compensation Attorney Name | Role | Phone | + [...] | | | | | | [place] [address] | | | | | | [phone] | | | +--------+ + + + [...]
--- OUTSIDE RECORDS SUMMARY | ~2019-10-01 | XMS | Encounter Summary ---
Demographics + + + | Address | [address] | | | [place] [address] | + + + | Home Phone | | + + + | Preferred Language | Unknown | + + + | Marital Status | Single | + + + | Yarsani Affiliation | Unknown | + + + | Race | Unknown | + + + | Ethnic Group | Unknown | + + + Author + + + | Author | [facility] | | | and [place] | + + + | Organization | [facility] | | | [...] Team Providers + +------+ + | Care Residential Program Manager Name | Role | Phone | [...] | | | [address] [place], [place] | [phone] | with loss of | | | | [address] | | consciousness of 30 | | | | [phone] | | minutes or less, | | [...] + +--------+ + + + | *TERMED* [place] EEG | Routin | 07/07/2019 | Alcohol [...] was | | | reviewed using the [employer] EEG digital system. During the | | [...]
--- OUTSIDE RECORDS SUMMARY | ~2019-10-01 | XMS | Encounter Summary ---
Demographics + + + | Address | [address] | | | [place] [address] | + + + | Home Phone | | + + + | Preferred Language | Unknown | + + + | Marital Status | Single | + + + | Yazdanism Affiliation | Unknown | + + + [...] Team Providers + +------+ + | Care Electronics Maintenance Technician Name | Role | Phone | + [...] | (HCC) | [address], [address] | [address] | | | | | Cerebral | [place], | Phone: | | | | | concussion, | [place] [address] | [phone] | | | | | with loss of | Phone: | Fax: | | | | | | [phone] | [phone] | | | | | consciousnes | Fax: | | | | | | s of 30 | [phone] | | | | | | minutes [...] [place], [place] | | | | | ([facility]) | [address], [address] | [address] | | | | | Cerebral | [place], | Phone: | | | | | concussion, | [place] [address] | [phone] | | | | | with loss of | Phone: | Fax: | | | | | | [phone] | [phone] | | | | | consciousnes | Fax: | | | | | | s of 30 | [phone] | | | | | | minutes or | | | | | | | less, | | | | | | | sequela | | | | | | | ([facility]) | | | | | | | [...] | | [place], [place] | [place] [address] | with loss of | | | | [address] | [phone] | consciousness of 30 | | | | [phone] | | minutes or less, | | [...]
--- OUTSIDE RECORDS SUMMARY | ~2019-10-01 | XMS | Encounter Summary ---
Demographics + + + | Address | [address] | | | [place] [address] | + + + | Home Phone | | + + + | Preferred Language | Unknown | + + + | Marital Status | Single | + + + | Baptism Affiliation | Unknown | + + + | Race | Unknown | + + + | Ethnic Group | Unknown | + + + Author + + + | Author | [facility] | | | and [place] | + + + | Organization | [facility] | | | [...] Team Providers + +------+ + | Care Puddler Pile Driving Name | Role | Phone | + [...] Results (EEG) | | 2019 | | [facility] | | | | | | CLINIC [address] | | | | | | [address] [place], | | | | | | [place] [address] | | | | | | [phone] | | | +--------+ + + + [...]
--- OUTSIDE RECORDS SUMMARY | ~2019-10-01 | XMS | Encounter Summary ---
Demographics + + + | Address | [address] | | | [place] [address] | + + + | Home Phone | | + + + | Preferred Language | Unknown | + + + | Marital Status | Single | + + + | Sabianist Affiliation | Unknown | + + + | Race | Unknown | + + + | Ethnic Group | Unknown | + + + Author + + + | Author | [facility] | | | and [place] | + + + | Organization | [facility] | | | [...] Team Providers + +------+ + | Care Pantograph Machine Set Up Operator Name | Role | Phone | [...] + + | 07/03/ | Telephone | [place] [facility] | Johanna Al | Results, Imaging | | 2020 | | HOSPITAL [facility] | MD Idris [address] | | | | | CLIN[address] | [address] | | | | | [address] [place], | [place] [address] | | | | | [place] [address] | [phone] | | | | | [phone] | | | +--------+ + + + [...]
--- OUTSIDE RECORDS SUMMARY | ~2019-10-01 | XMS | Clinical Summary ---
Demographics + + + | Address | [address] | | | [place] [address] | + + + | Home Phone | | + + + | Preferred Language | Unknown | + + + | Marital Status | Single | + + + | Jew Affiliation | Unknown | + + + | Race | Unknown | + + + | Ethnic Group | Unknown | + + + Author + + + | Author | [facility] | | | and [place] | + + + | Organization | [facility] | | | [...] Team Providers + +------+ + | Care Concrete Mixer Operator Helper Name | Role | Phone | + [...] + +--------+ + + + | *TERMED* [place] EEG | Routin | 07/07/2019 | Alcohol [...] was | | | reviewed using the [employer] EEG digital system. During the | | [...] +---------+--------+ | [place] | MEDICA | [id number] | | [phone] | | Medica | [...] | | al/Fam | | 1990 | [phone] | [place] | | | [place] | | | [address] (Home) | [address] | + +--------+ +--------+ + + Advance Directives + + + + + | Type | Date Recorded | Patient | Explanation | | | | Electronic Organ Mechanic | | + + + + + | Power of | | | | | Materials Intern | | | | + + + + + | Advance | 07/07/2019 9:25 | | | | Directive | AM | | | + + + + +
--- OUTSIDE RECORDS SUMMARY | ~2019-10-01 | XMS | Encounter Summary ---
Demographics + + + | Address | [address] | | | [place] [address] | + + + | Home Phone | | + + + | Preferred Language | Unknown | + + + | Marital Status | Single | + + + | Quaker Affiliation | Unknown | + + + | Race | Unknown | + + + | Ethnic Group | Unknown | + + + Author + + + | Author | [facility] | | | and [place] | + + + | Organization | [facility] | | [...] Team Providers + +------+ + | Care Geotechnical Engineering Technician Name | Role | Phone | [...] | [address] [place], | [place] [address] | | | | | [place] [address] | [phone] | | | | | [phone] | | | +--------+ + + + [...]
[~2019-10-01 22:27] MED LIST changes: +NALTREXONE HCL50 MG PO
[2019-10-02] MEDS ORDERED: NORCO 5-325 TA1 EACH PO (00:10)
== END 2019-10-02 00:36 | disposition home or self-care (01) ==
LOC: ED 22:27
DX: R31.0 Gross hematuria (principal); R10.9 Unspecified abdominal pain; F17.200 Nicotine dependence, unspecified, uncomplicated
CPT/HCPCS: 74176; 80053; 81001; 82550; 85025; 96374; 96375; 99284-25; J1170; J1885; J2405

== ENCOUNTER 2020-10-11 20:25 | Emergency (ER) | payer OTHER ==
[~2020-10-11] VITALS: Ht 175.3 cm; Wt 79.8 kg
[~2020-10-11 20:25] MED LIST changes: +NORCO 5-325 TA1 EACH PO
[2020-10-11] MEDS ORDERED: CYCLOBENZAPRINE10 MG PO (20:39)
[2020-10-11] MEDS ORDERED: CHLORDIAZEPOXID25 MG PO (20:43)
[2020-10-11] MEDS ORDERED: ONDANSETRON ODT8 MG PO (20:44)
[2020-10-11] MEDS ORDERED: TYLENOL EXTRA500 MG PO (20:45)
[2020-10-11] MEDS ORDERED: VISTARIL25 MG PO (20:45)
[2020-10-11] MEDS ORDERED: TRAZODONE HCL100 MG PO (20:48)
[2020-10-11] MEDS ORDERED: IBUPROFEN400 MG PO (20:48)
== END 2020-10-11 22:05 | disposition home or self-care (01) ==
LOC: ED 20:25
DX: F10.239 Alcohol dependence with withdrawal, unspecified (principal); R56.9 Unspecified convulsions; S00.01XA Abrasion of scalp, initial encounter; X58.XXXA Exposure to other specified factors, initial encounter; F17.200 Nicotine dependence, unspecified, uncomplicated; Z79.899 Other long term (current) drug therapy
CPT/HCPCS: 99284